=== PATIENT | female | born 1940 | race Caucasian/White ===

== ENCOUNTER 2016-12-30 07:52 | Day surgery (SDC) | payer MEDICARE, OTHER ==
--- NOTE | ~2016-12-30 | EGD ---
EGD REPORT [facility] [address] [place]. [id number] NAME: ZITA PATEL : [birth year] STATUS : PRE [facility] [place] PAT#: [id number] AGE: 76 ADM/REG DATE : MR#: [id number] REPORT SERV DATE: 12/30/16 DICTATED BY: OWEN PADILLA DATE: 12/30/16 REPORT STATUS : Draft [facility]: [facility] DATE: 12/30/16 End[facility] Center Patient Name: Zita Patel Date of : 1940 Attending MD: OWEN PADILLA MD Procedure Date No Time: 12/30/2016 Procedure: Colonoscopy Indications: High risk colon cancer surveillance: Personal history of colonic polyps Referring MD: OWEN KINNEY MD Medicines: as per anesthesia Complications: No immediate complications. Procedure: After I obtained informed consent, the scope was passed under direct vision. Throughout the procedure, the patient's blood pressure, pulse, and oxygen saturations were monitored continuously. The PCF [id number] was introduced through the anus and advanced to the cecum, identified by appendiceal orifice and ileocecal valve. The colonoscopy was somewhat difficult due to multiple diverticula in the colon and a tortuous colon. The patient tolerated the procedure. The quality of the bowel preparation was fair. Findings: The perianal and digital rectal examinations were normal. A sessile polyp was found in the transverse colon. The polyp was 3 mm in size. The polyp was removed with a cold biopsy forceps. Resection and retrieval were complete. Multiple small and large-mouthed diverticula were found in the sigmoid colon and in the descending colon. Internal hemorrhoids were found during endoscopy and were mild. Impression: - One 3 mm polyp in the transverse colon. Resected and retrieved. - Diverticulosis in the sigmoid colon and in the descending colon. - Internal hemorrhoids. Recommendation: - Await pathology results. Procedure Code(s): --- Professional --- [address]5315, Colonoscopy, flexible, proximal to splenic flexure; with biopsy, single or multiple Diagnosis Code(s): --- Professional --- EGD REPORT [address] [place]. [address] NAME: ZITA PATEL : [birth year] STATUS : PRE [facility] [place] PAT#: [id number] AGE: 76 ADM/REG DATE : MR#: [id number] REPORT SERV DATE: 12/30/16 DICTATED BY: OWEN PADILLA DATE: 12/30/16 REPORT STATUS : Draft TRANSCRIBED BY: [employer] DATE: 12/30/16 D12.3, Benign neoplasm of transverse colon K64.8, Other hemorrhoids K57.30, Diverticulosis of large intestine without perforation or abscess without bleeding Z86.010, Personal history of colonic polyps CPT copyright 2013 [employer]. All rights reserved. The codes documented in this report are preliminary and upon tire design engineer review may be revised to meet current compliance requirements. OWEN PADILLA MD 12/30/2016 11:28 AM This report has been signed electronically. Number of Addenda: 0 Note Initiated On: 12/30/2016 11:06 AM Scope Withdrawal Time 0 hours 6 minutes 43 seconds [id number] [facility] [place] [id number]
[~2016-12-30 07:52] MED LIST: CIP2 PO; CYANO1000T SC; FLOMAX4 PO; HYZAAR 100/25 T1 TAB PO; MOBIC15 MG PO; NORCO1 TA1 PO; NORV5 PO; P5 PO; PCET PO; PRILOSEC OTC20 MG PO; PROTONIX PO; ZOFRAN4 PO; [UNRECOGNIZED DRUG - OTHER] PO
== END 2016-12-30 23:59 | disposition home or self-care (01) ==
LOC: DMU 07:52
PROVIDERS: Internal Medicine Gastroenterology
PROC: 0DBL8ZZ Excision of Transverse Colon, Via Natural or Artificial Opening Endoscopic (ICD-10-PCS; principal; 2016-12-30 11:30)
DX: D12.3 Benign neoplasm of transverse colon (principal); K57.30 Diverticulosis of large intestine without perforation or abscess without bleeding; K64.8 Other hemorrhoids; I10 Essential (primary) hypertension; Z88.1 Allergy status to other antibiotic agents; Z95.0 Presence of cardiac pacemaker; Z86.010 Personal history of colon polyps
CPT/HCPCS: 88305

== ENCOUNTER 2017-01-17 02:17 | Emergency (ER) | payer MEDICARE, OTHER ==
[2017-01-17 01:52] LABS: BASOPHILS 0.2 %; BASOPHILS ABSOLUTE 0.02 10/3/uL (0.0-0.16); EOSINOPHILS 0.5 %; EOSINOPHILS ABSOLUTE 0.06 10/3/uL (0.0-0.53); HEMATOCRIT 33.9 % (36.0-48.0); HEMOGLOBIN 11.3 g/dL (12.0-16.0); IMMATURE GRANULOCYTES 0.5 %; IMMATURE GRANULOCYTES ABSOLUTE 0.06 10/3/uL (0.0-0.11); LYMPHOCYTES 15.7 %; LYMPHOCYTES ABSOLUTE 1.94 10/3/uL (0.67-4.30); MEAN PLATELET VOLUME 9.1 fL (9.2-13.0); MONOCYTES 7.2 %; MONOCYTES ABSOLUTE 0.89 10/3/uL (0.21-1.20); NEUTROPHILS 75.9 %; NEUTROPHILS ABSOLUTE 9.38 10/3/uL (2.02-8.40); PLATELET COUNT 289 10/3/uL (150-400); RBC DISTRIBUTION WIDTH 13.2 % (12.0-16.0); RED CELL COUNT 3.47 10/6/uL (4.0-5.6)
[2017-01-17 01:53] LABS: ER CBC TAT 0 Hrs 05 Mins; MEAN CORPUS HGB CONC 33.3 g/dL (32.0-36.0); MEAN CORPUSCULAR HEMOGLOB 32.6 pg (26.0-34.0); MEAN CORPUSCULAR VOLUME 97.7 fL (80-100); WHITE BLOOD CELLS 12.4 10/3/uL (4.5-10.5)
[2017-01-17 01:54] LABS: MANUAL DIFF NO %
[2017-01-17 01:59] LABS: INTERNATIONAL NORMAL RATI 0.9 UNITS (-); PROTIME (NOT ORD) 12.5 SEC (12.0-14.5)
[2017-01-17 02:10] LABS: BUN (BLOOD UREA NITROGEN) 32 MG/DL (6-23); CALCIUM, SERUM 9.2 MG/DL (8.5-10.4); CHEST PAIN PROFILE TAT 0 Hrs 22 Mins; CHLORIDE, SERUM 104 MMOL/L (96-112); CO2 (CARBON DIOXIDE) 29 MMOL/L (24-34); CREATININE 1.14 MG/DL (0.55-1.02); GFR AFRICAN AMERICAN 54 ML/MIN (>=60); GFR NON AFRICAN AMERICAN 46 ML/MIN (>=60); GLUCOSE, SERUM 145 MG/DL (60-99); SODIUM, SERUM 143 MMOL/L (135-148); TROPONIN I <0.02 NG/ML (<0.05)
== END 2017-01-17 03:50 | disposition home or self-care (01) ==
LOC: ER 02:17
PROVIDERS: Emergency Medicine
DX: R20.2 Paresthesia of skin (principal); I10 Essential (primary) hypertension; K21.9 Gastro-esophageal reflux disease without esophagitis; Z95.0 Presence of cardiac pacemaker; Z88.1 Allergy status to other antibiotic agents; Z79.899 Other long term (current) drug therapy
CPT/HCPCS: 70450; 71020; 80048; 82962; 83735; 84484; 85025; 85610; 85730; 93005; 99285